=== PATIENT | male | born 1975 | race Caucasian/White ===

== ENCOUNTER 2020-07-19 17:10 | Emergency (ER) | payer OTHER, SELFPAY ==
[2020-07-19 17:15] VITALS: BP 174/95; PULSE 86; RESP 18; TEMP 36.8; O2SAT 97; BMI 34.4
[2020-07-19 18:10] VITALS: BP 174/95; PULSE 78; RESP 16; O2SAT 97
--- NOTE | 2020-07-19 18:11 | W.ED.FALL ---
HPI - Fall General: Chief Complaint: Fall Stated Complaint: SLIPPED & FELL, TWISTING R HIP/SIDE Time Seen by Provider: 07/19/20 18:10 History of Present Illness: HPI Narrative: Patient is a 44-year-old male comes to the ED with right hip and thigh pain after slipping at work. Patient says injury occurred just prior to arrival. 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 He is now having some pain in his right groin region. Denies falling, head trauma and impact to ground. Associated symptoms-after fall: Denies abdominal pain, chest pain, headache(s), hematuria or neck pain Review of Systems Const: Denies: fever(s), chills or fatigue Eyes: Denies: change in vision or eye discomfort ENMT: Denies: throat pain, odynophagia, nasal discharge or nasal congestion Card: Denies: chest pain, palpitations, edema, swelling of feet/ankles, dyspnea on exertion or orthopnea Resp: Denies: dyspnea, productive cough or non-productive cough GI: Denies: abdominal pain, nausea, vomiting, diarrhea, constipation or hematochezia : Denies: flank pain, difficulty urinating, dysuria or hematuria Musc: Reports: extremity swelling (Right thigh and groin pain.); Denies: neck pain or back pain Skin/Breast: Denies: rash or new lesions Neuro: Denies: headache(s), numbness in extremities or weakness in extremities Physical Exam Const: COMMON NORMALS: no acute distress, patient oriented x3 and alert GENERAL APPEARANCE: cooperative and comfortable HENMT: COMMON NORMALS: normocephalic HEAD & SCALP: normocephalic MOUTH: Normal oral and palatal mucosa present THROAT: posterior oropharynx normal and uvula midline Neck/C-Spine: COMMON NORMALS: supple GENERAL: Yes normal visual inspection Resp: COMMON NORMALS: normal respiratory effort, No retractions, No use of accessory muscles and clear to auscultation bilaterally AUSCULTATION: clear to auscultation bilaterally Cardio: COMMON NORMALS: regular rate, regular rhythm, S1 normal heart sound present, S2 normal heart sound present, No gallops present (Cardio), No clicks present (Cardio), No murmurs present (Cardio) and Peripheral pulses 2+ throughout RATE: regular rate RHYTHM: regular rhythm HEART SOUNDS: S1 normal heart sound present and S2 normal heart sound present PERIPHERAL PULSES: Peripheral pulses 2+ throughout GI: COMMON NORMALS: Normal to inspection, nondistended, normoactive bowel sounds present, Soft to palpation, non-tender and no masses PALPATION: Yes Soft to palpation : COMMON NORMALS: Yes no CVA tenderness BLADDER/KIDNEY EXAM: Yes no CVA tenderness Back/Pelvis: COMMON NORMALS: no CVA tenderness Extremity: NARRATIVE EXTREMITY EXAM: Right thigh?patient has some muscular tenderness right thigh on palpation and no other acute findings. GENERAL: Yes normal exam except as noted Neuro: COMMON NORMALS: patient oriented x3 and moves all extremities SENSORIUM/ORIENTATION: Yes alert GAIT: Yes Normal gait present Skin: GENERAL SKIN EXAM: dry skin Course Vital Signs: Vital signs: Vital Signs Temperature 98.2 F 07/19/20 17:15 Pulse Rate 78 07/19/20 18:10 Respiratory Rate 16 07/19/20 18:10 Blood Pressure 174/95 07/19/20 18:10 Pulse Oximetry 97 07/19/20 18:10 MDM - Fall MDM Narrative: Medical decision making narrative: Patient is a 44-year-old male comes to the ED with workplace injury to right upper leg. Patient says right leg slipped and freezer at work causing him some groin and upper thigh pain. Exam shows a healthy 44-year-old male in no acute distress or pain. He has some tenderness to the muscle of the right thigh. No other acute exam findings. Patient is able to ambulate on right leg. X-ray of right hip shows no acute fractures or findings. Patient was diagnosed with a muscle strain of right thigh and discharged with ibuprofen 800 and methocarbamol. Worker's Comp. paperwork was completed and signed. Patient was told to follow-up with his PCP in 7 to 10 days for reevaluation. Patient understood agree with plan. Imaging Data^: Xray Ortho: Attestation: I personally reviewed and interpreted this imaging study as follows: My impression: Right hip x-ray?no acute fractures or findings seen. Discharge Plan Discharge Patient Disposition: Home Clinical Impression: Muscle strain of right thigh Qualifiers: Encounter type: initial encounter Qualified Code(s): S76.911A - Strain of unspecified muscles, fascia and tendons at thigh level, right thigh, initial encounter Condition: Stable Prescriptions: New methocarbamol 750 mg tablet 750 mg PO Q8H Qty: 15 RF: 0 ibuprofen 800 mg tablet 800 mg PO Q8H PRN (Reason: pain) Qty: 30 RF: 0 Discharge Orders: Discharge ED (Routine); Ordered 07/19/20 Ordered By: Chadwick Hernandez Discharge Diet: Regular Discharge Activity: Increase activity as tolerated and Use walker/crutches as instructed Patient Instructions: Muscle Strain (ED), Groin Strain (ED) Activity Restrictions/Additional Instructions: Follow-up with medical provider as directed in 7 to 10 days for reevaluation. Use crutches for the next 3 days to allow for healing. Take medications as prescribed. Methocarbamol is a muscle relaxer and can cause some drowsiness so take at night before bed. Do not use methocarbamol with machinery or driving. return to the ER or your medical provider if condition worsens. Please read and understand discharge instructions. If any questions, please ask. Coding Level of Care Code ED Dental Office Receptionist for [facility] Fwd Exam Comprehensive
--- NOTE | 2020-07-19 18:26 | XRR_ITS ---
PROCEDURE INFORMATION: Exam: XR Right Hip with Pelvis when Performed Exam date and time: 07/19/2020 6:48 PM Age: 44 years old Clinical indication: Injury or trauma; Fall; Work related; Blunt trauma (contusions or hematomas); Right; Hip; Injury date: 07/19/2020; Additional info: Fall injury TECHNIQUE: Imaging protocol: XR Right hip with pelvis when performed. Views: 1 view. COMPARISON: No relevant prior studies available. FINDINGS: Bones/joints: Unremarkable. No acute fracture. No dislocation. No evidence of avascular necrosis of the femoral head. No chondrocalcinosis. No sacroiliitis. Soft tissues: Unremarkable. XR/XR hip RT 2-3V wo/w pel* [id number] IMPRESSION: No acute findings.
[2020-07-19] MEDS: acetaminophen 500 mg Tablet 1000 MG PO (19:12)
== END 2020-07-19 19:35 | disposition home or self-care (01) ==
PROVIDERS: Emergency Provider Physician Assistant
DX: S76.911A Strain of unspecified muscles, fascia and tendons at thigh level, right thigh, initial encounter (principal); W01.0XXA Fall on same level from slipping, tripping and stumbling without subsequent striking against object, initial encounter
CPT/HCPCS: 73502; 99283

== ENCOUNTER 2022-09-22 11:10 | Outpatient (CLI) | payer OTHER, SELFPAY ==
--- NOTE | 2022-09-22 | ECG_ITS ---
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 Interpretive Statements NAME OF STUDY: TREADMILL STRESS TEST INDICATION: Chest Pain, PROCEDURE: At the baseline, the patient's blood pressure was 124/95 with a heart rate of 65. The baseline electrocardiogram showed normal sinus rhythm with normal ST-Ts.. The patient exercised for 9 minutes and 31 seconds on a standard Charles protocol. Patient attained a maximum heart rate of 148 beats per minute(86% of the maximum predicted heart rate) with a blood pressure at the peak exercise of 168/84 mm Hg. The EKG at the peak exercise revealed no significant changes. Patient did not have any chest pain or any significant cardiac arrhythmias with the exercise During the recovery phase, there were no new changes. Blood pressure at the end of the recovery phase was 199/41 mm Hg with a heart rate of 109 per minute. CONCLUSION: 1. Normal EKG response to treadmill exercise 2. No exercise-induced chest pain or cardiac arrhythmia 3. Hypertensive this point exercise 3. Good exercise tolerance, attained a maximum of 13.5 METs Electronically Signed On 09-27-2022 17:20:24 CDT by Adonis Fall M.D. [email or web address]
--- NOTE | 2022-09-22 11:15 | USCV_ITS ---
Lloyd Mccormick Age: 47 Gender: M : 1975 Exam Date: 09/22/2022 11:34 Ordering Phys: Adonis Fall MD ([email or web address]) Technologist: Juan Diego Mccullough Exam Location: [facility] [place] Indication: chest pain/ abnormal EKG BP: 134 / 84 HR: 65 Rhythm: Sinus Technical Quality: Adequate MEASUREMENTS (Male / Female) Normal Values 2D ECHO LV Diastolic Diameter PLAX 4.1 cm 4.2 - 5.9 / 3.9 - 5.3 cm LV Systolic Diameter PLAX 2.7 cm IVS Diastolic Thickness 1.0 cm 0.6 - 1.0 / 0.6 - 0.9 cm IVS Systolic Thickness 1.2 cm LVPW Diastolic Thickness 1.3 cm 0.6 - 1.0 / 0.6 - 0.9 cm LVPW Systolic Thickness 1.5 cm LVOT Diameter 2.1 cm LV Ejection Fraction 2D Teich 64.8 % LV Ejection Fraction MOD 2C 66.1 % LV Ejection Fraction 2C AL 66.2 % LA Diameter 3.7 cm LA Width 3.6 cm LA Height 4.8 cm RA Width 4.5 cm RA Height 5.5 cm Aorta at Sinotubular Diameter 3.1 cm IVC Diameter 1.9 cm M-MODE Aortic Annulus Diameter 3.5 cm LA Ao Ratio MM 1.1 MV E Point Septal Separation 0.5 cm DOPPLER AV Peak Velocity 135.0 cm/s LVOT Peak Velocity 112.0 cm/s AV Area Cont Eq vti 2.9 cm squared AV Area Cont Eq pk 2.8 cm squared MV Peak Velocity 89.0 cm/s MV Area PHT 4.9 cm squared Mitral E to A Ratio 0.8 MV E' Velocity 34.0 cm/s Mitral E to MV E' Ratio 5.0 Mitral E to LV E' Lateral Ratio 4.8 Mitral E to LV E' Septal Ratio 5.2 TR Peak Velocity 347.0 cm/s TR Peak Gradient 48.2 mmHg TR Mean Velocity 263.9 cm/s TR Mean Gradient 29.8 mmHg TR Velocity Time Integral 85.7 cm Right Atrial Pressure 3.0 mmHg Pulmonary Artery Systolic Pressu 51.2 mmHg PV Peak Velocity 118.0 cm/s RV Acceleration Time 0.1 s RV Ejection Time 0.3 s RV AcT/ET 0.5 FINDINGS Left Ventricle Normal left ventricular size and systolic function, EF 64 %. No regional wall motion abnormalities. Right Ventricle The right ventricle is normal in size and function. Right Atrium The right atrium is normal in size. Left Atrium The left atrium is normal in size. Mitral Valve No gross abnormalities noted Aortic Valve Trace aortic valve regurgitation. Tricuspid Valve Trace tricuspid valve regurgitation. The PA pressure could not be calculated properly because of the poor Doppler signals Pulmonic Valve No gross abnormalities noted Pericardium Normal pericardium without effusion. Aorta Normal ascending aorta dimension. IVC The inferior vena cava appears normal. CONCLUSIONS Normal left ventricular size and systolic function, EF 64 %. No regional wall motion abnormalities. Trace aortic valve regurgitation. The PA pressure could not be calculated properly because of the poor Doppler signals. Trace aortic valve regurgitation. There is no pericardial effusion. There are no intracardiac masses. No similar previous studies are available for comparison Dr Adonis Fall MD [facility] (Electronically Signed) Final Date: 23 September 2022 08:36 S
[2022-09-22 13:02] VITALS: BMI 31.5
[2022-09-22 13:34] VITALS: BP 129/70; PULSE 93
== END 2022-09-22 11:11 | disposition home or self-care (01) ==
LOC: RAD 11:12 → CDL 12:59
PROVIDERS: PCP Nurse Practitioner Family; Visit Provider Internal Medicine Cardiovascular Disease
DX: R06.09 Other forms of dyspnea (principal)
CPT/HCPCS: 93017; 93306